=== PATIENT | male | born 1975 | race Caucasian/White ===

== ENCOUNTER → 2022-10-25 13:59 | Outpatient (CLI) | payer OTHER, SELFPAY ==
--- NOTE | ~2022-10-25 | US_ITS ---
EXAMINATION: US scrotum doppler DATE: 10/25/2022 14:31 INDICATION: PAIN . TECHNIQUE: Grayscale and Doppler ultrasound images of the testes were obtained. COMPARISON: None. FINDINGS: The right testis measures 5.1 x 2.3 x 3.5 cm. The left testis measures 4.4 x 2.2 x 3.5 cm. Bilateral 2 mm intratesticular cysts of doubtful clinical significance. No suspicious testicular mass . There is normal vascular flow to both testes. The right epididymis contains a small cyst but is oth erwise normal with normal vascular flow. The left epididymis contains a small cyst but is otherwise n ormal with normal vascular flow. There is no hydrocele. Moderate left varicocele. IMPRESSION: Moderate left varicocele, otherwise normal scrotal ultrasound findings. Reviewed, dictated and finalized at location K. EXAMINER
== END ==
DX: N50.82 Scrotal pain (principal); I86.1 Scrotal varices
CPT/HCPCS: 76870; 93976

== ENCOUNTER 2022-11-22 00:50 | Day surgery (SDC) | payer OTHER, SELFPAY ==
[2022-11-17 10:46] VITALS: BMI 28.5
--- NOTE | 2022-11-21 12:56 | PM.HPGS ---
History of Present Illness History of Present Illness Consent: Risks, benefits, and alternatives have been discussed and questions answered. Patient agrees to proceed with procedure. Chief complaint: neoplasm screening Narrative: Harry Garcia is a 46 year old male Referred for colon cancer screening. Review of Systems Review of Systems: All systems reviewed & are unremarkable except as noted in HPI and below PMFSH Social History Social History Smoking status: Current some day smoker Tobacco type: cigars Second hand tobacco smoke exposure: No Alcohol intake: former Substance use: never Substance use type: does not use Lack of Transportation: No Lack of Food: Never True Current Housing: I Have Housing Concerned About Future Housing: No Difficulty Paying Gas/Electric Bills: No Difficulty Paying for Meds: No Currently Unemployed: No Education: Master's Degree or Higher Difficulty w/ Childcare or Family Care: No Living arrangements: with family Spiritual care concerns: No Meds Home Medications and Allergies Home Medications Medication Instructions Recorded Confirmed Type Adult Multivitamin (w-lutein) 1 tab-cap PO DAILY 11/17/22 11/17/22 History Glucosamine Chondroitin 1,000 mg PO DAILY 11/17/22 11/17/22 History doxycycline monohydrate 100 mg 100 mg PO BID #28 tabs 11/17/22 11/17/22 Rx tablet fluticasone propionate 50 2 spray intranasal DAILY 11/17/22 11/17/22 History mcg/actuation nasal spray,suspension loratadine 10 mg tablet (Claritin) 10 mg PO DAILY 11/17/22 11/17/22 History omega 0-vvt-mot-fish oil 1,200 mg 1 cap PO DAILY 11/17/22 11/17/22 History (144 mg-216 mg) capsule (Fish Oil) Allergies Allergy/AdvReac Type Severity Reaction Status Date / Time sesame seed Allergy Severe Swelling Verified 11/17/22 10:48 of Lip/Tongue/Throat Exam Const: General: alert Orientation/consciousness: patient oriented x3 Resp: Auscultation: clear to auscultation bilaterally Cardio: Rhythm: regular rhythm GI: GI Palp: Yes Soft to palpation and No Tenderness to palpation present (GI) Neuro: General: patient oriented x3 Assessment and Plan Assessment and plan (1) Colon cancer screening: Code(s): Z12.11 - Encounter for screening for malignant neoplasm of colon Status: Acute Assessment and Plan: Colonoscopy with possible biopsy or polypectomy or cautery or injection of substances.
[2022-11-22 07:25] VITALS: BP 141/69; PULSE 58; RESP 18; TEMP 36.3; O2SAT 100; BMI 27.6
[2022-11-22] MEDS: LACTATED RINGERS 1,000 ML 150 ML IV CONT (07:35)
--- NOTE | 2022-11-22 08:03 | WPDANESEPPF ---
Anes - Initial Pre Proc Eval Procedure: Operation Date: 11/22/22 08:30 Proposed Procedures p Screening Colonoscopy - Quinn Bynum MD Date/Time: 11/22/22 08:03 Surgeon: Quinn Bynum MD Pre Op Diagnosis: neoplasm screening Patient Data Age: 46 Gender: M Height: 1.85 m Weight: 95 kg Last Vital Signs Temp 97.4 F L 11/22/22 07:25 Pulse 58 L 11/22/22 07:25 Resp 18 11/22/22 07:25 BP 141/69 H 11/22/22 07:25 Pulse Ox 100 11/22/22 07:25 O2 Del Method Room Air 11/22/22 07:25 Allergies Allergy/AdvReac Type Severity Reaction Status Date / Time sesame seed Allergy Severe Swelling Verified 11/17/22 10:48 of Lip/Tongue/Throat Home Medications Medication Instructions Recorded Confirmed Type Adult Multivitamin (w-lutein) 1 tab-cap PO DAILY 11/17/22 11/17/22 History Glucosamine Chondroitin 1,000 mg PO DAILY 11/17/22 11/17/22 History doxycycline monohydrate 100 mg 100 mg PO BID #28 tabs 11/17/22 11/17/22 Rx tablet fluticasone propionate 50 2 spray intranasal DAILY 11/17/22 11/17/22 History mcg/actuation nasal spray,suspension loratadine 10 mg tablet (Claritin) 10 mg PO DAILY 11/17/22 11/17/22 History omega 2-yez-sua-fish oil 1,200 mg 1 cap PO DAILY 11/17/22 11/17/22 History (144 mg-216 mg) capsule (Fish Oil) Patient hx anesthesia problems: none Family hx anesthesia problems: none Results Review: All pre-operative results and documents have been reviewed as part of the pre-operative evaluation. [facility] Social History Social History Smoking status: Current some day smoker Tobacco type: cigars Second hand tobacco smoke exposure: No Alcohol intake: former Substance use: never Substance use type: does not use Lack of Transportation: No Lack of Food: Never True Current Housing: I Have Housing Concerned About Future Housing: No Difficulty Paying Gas/Electric Bills: No Difficulty Paying for Meds: No Currently Unemployed: No Education: Master's Degree or Higher Difficulty w/ Childcare or Family Care: No Living arrangements: with family Spiritual care concerns: No Anes - Eval Final PreProcedure Day of Procedure 11/22/22 08:03 Patient weight: normal Heart: regular rate and rhythm Lungs: clear to auscultation Airway: Mallampati scale class II Neurological: alert and oriented Last oral intake: >/= 8 hours ASA classification: II Emergent: no Anesthetic plan: proceed Anesthesia type and monitoring: general GIVS and standard monitoring Results Review: All pre-operative results and documents have been reviewed as part of the pre-operative evaluation. Informed Consent: The patient's anesthetic plan and its attendant risks and benefits were discussed with the patient/family/POA. Questions were solicited and answers provided to the satisfaction of the patient/family/POA.
[2022-11-22] MEDS: SIMETHICONE ORAL SUSPENSION 20 MG/0.3 ML 30 ML BOTTLE 0.6 ML IRRIGATION (08:43)
[2022-11-22 08:55] VITALS: BP 122/74; PULSE 55; RESP 16; O2SAT 98
[2022-11-22 09:05] VITALS: BP 128/83; PULSE 65; RESP 17; O2SAT 98
[2022-11-22 09:15] VITALS: BP 127/84; PULSE 50; RESP 12; O2SAT 99
== END 2022-11-22 09:18 | disposition home or self-care (01) ==
PROVIDERS: PCP Emergency Medicine; Visit Provider Internal Medicine Gastroenterology
PROC: 0DJD8ZZ Inspection of Lower Intestinal Tract, Via Natural or Artificial Opening Endoscopic (ICD-10-PCS; CPT 45378; principal; 2022-11-22 08:30)
DX: Z12.11 Encounter for screening for malignant neoplasm of colon (principal); K57.30 Diverticulosis of large intestine without perforation or abscess without bleeding; F17.290 Nicotine dependence, other tobacco product, uncomplicated
CPT/HCPCS: 45378; J2704; J7120

== ENCOUNTER 2023-11-22 11:38 | Outpatient (CLI) | payer OTHER, SELFPAY ==
[2023-11-22 18:48] LABS: Basophils Percent Auto 0.7 % (0.2-1.2); Eosinophils Percent Auto 0.5 % (0-4.4); Hematocrit 42.2 % (42.0-52.0); Hemoglobin 14.9 g/dL (14.0-18.0); Lymphocytes Absolute Auto 1.21 K/mm3 (0.9-3.2); Lymphocytes Percent Auto 28.7 % (18.3-44.2); Mean Corpuscular HGB Conc 35.3 g/dl (32-36); Mean Corpuscular Hemoglobin 32.6 pg (26-34); Mean Corpuscular Volume 92.3 fl (80-100); Mean Platelet Volume 10.3 fl (7.4-10.4); Monocytes Absolute Auto 0.4 K/mm3 (0.1-0.6); Monocytes Percent Auto 8.5 % (2.6-8.5); Neutrophils Absolute Auto 2.6 K/mm3 (1.3-6.7); Neutrophils Percent Auto 61.6 % (45.5-73.1); Platelet Count Result 182 k/mm3 (150-375); Red Blood Count 4.57 M/mm3 (4.6-6.20); Red Cell Distribution Width 11.9 % (11.5-14.5); White Blood Count 4.2 K/mm3 (4.5-10.0)
[2023-11-22 21:06] LABS: Alanine Aminotransferase 38 U/L (6-50); Albumin Level 4.7 g/dL (3.5-5.1); Alkaline Phosphatase 78 U/L (38-126); Anion Gap 9 mmol/L (8-16); Aspartate Amino Transferase 70 U/L (17-59); Bilirubin,Total 0.8 mg/dL (0.2-1.3); Blood Urea Nitrogen 13 mg/dL (9-20); Calcium 9.8 mg/dL (8.4-10.2); Carbon Dioxide 28 mmol/L (22-30); Chloride 104 mmol/L (98-107); Cholesterol 230 mg/dL (0-200); Estimated Glomerular Filt Rate > 60; Glucose 85 mg/dL (65-110); HDL Direct 46 mg/dL; Potassium 4.2 mmol/L (3.4-5.0); Sodium 141 mmol/L (137-145); Triglycerides 88 mg/dL (<150)
[2023-11-22 21:17] LABS: LDL Cholesterol Direct 129 mg/dL
== END 2023-11-22 11:39 | disposition home or self-care (01) ==
LOC: ANHGOSHLAB 11:39
PROVIDERS: PCP Emergency Medicine; Visit Provider Emergency Medicine
DX: Z00.00 Encounter for general adult medical examination without abnormal findings (principal)
CPT/HCPCS: 36415; 80053; 80061; 85025